=== PATIENT | female | born 1950 | race Caucasian/White ===

== ENCOUNTER 2021-01-15 12:20 | Inpatient (IN) | payer MEDICARE ==
[~2021-01-15] VITALS: Ht 180.3 cm; Wt 70.3 kg
[2021-01-15 12:57] LABS: HEMOGLOBIN 17.5 gm/dl (12.3-15.3); RED BLOOD COUNT 5.09 M/UL (4.00-5.10); WHITE BLOOD COUNT 7.5 K/UL (4.5-11.0)
[2021-01-15 13:44] LABS: BUN/CREATININE RATIO 15 (0-10)
[2021-01-16 04:08] LABS: WHITE BLOOD COUNT 7.2 K/UL (4.5-11.0)
[2021-01-16 04:10] LABS: RED BLOOD COUNT 4.3 M/UL (4.00-5.10)
[2021-01-16 04:39] LABS: BUN/CREATININE RATIO 18 (0-10)
[2021-01-17 04:17] LABS: HEMOGLOBIN 14.4 gm/dl (12.3-15.3); RED BLOOD COUNT 4.43 M/UL (4.00-5.10)
[2021-01-17 04:32] LABS: BUN/CREATININE RATIO 24 (0-10)
[2021-01-18 02:53] LABS: HEMOGLOBIN 14.2 gm/dl (12.3-15.3); RED BLOOD COUNT 4.26 M/UL (4.00-5.10)
[2021-01-18 03:15] LABS: BUN/CREATININE RATIO 19 (0-10)
[2021-01-19 03:00] LABS: HEMOGLOBIN 14.2 gm/dl (12.3-15.3); RED BLOOD COUNT 4.17 M/UL (4.00-5.10); WHITE BLOOD COUNT 4.8 K/UL (4.5-11.0)
[2021-01-19 03:24] LABS: BUN/CREATININE RATIO 20 (0-10)
[2021-01-19] MEDS ORDERED: HYDROCODON-ACE1 EAC2 PO (12:29)
[2021-01-19] MEDS ORDERED: PROAIR HFA8.5 GM INH (12:32)
[2021-01-19] MEDS ORDERED: IPRAT-ALBUT 0.5-3 ML INH (12:33)
== END 2021-01-19 13:06 | disposition home or self-care (01) | DRG 190 ==
LOC: ER1 12:20 → PROG CARE 14:05 → CDU 14:05 → PROG CARE 21:30
PROVIDERS: Emergency Medicine; Physician Assistant Medical; ADMIT Internal Medicine
PROC: 0W9930Z Drainage of Right Pleural Cavity with Drainage Device, Percutaneous Approach (ICD-10-PCS; principal; 2021-01-15)
DX: J44.9 Chronic obstructive pulmonary disease, unspecified (principal); J96.01 Acute respiratory failure with hypoxia; J93.12 Secondary spontaneous pneumothorax; K59.00 Constipation, unspecified; Z20.822 Contact with and (suspected) exposure to COVID-19; F17.210 Nicotine dependence, cigarettes, uncomplicated; Z90.49 Acquired absence of other specified parts of digestive tract; Z83.3 Family history of diabetes mellitus
CPT/HCPCS: 32551; 36415; 71045; 71046; 74018; 80048; 80053; 82550; 82553; 83735; 83874; 83880; 84484; 85025; 85027; 94640; 94664; 94760; 99285; J2250; J2270; J2405; U0002

== ENCOUNTER → 2021-02-23 | Outpatient (CLI) | payer MEDICARE ==
[~2021-02-23] MED LIST: HYDROCODON-ACE1 EAC2 PO; IPRAT-ALBUT 0.5-3 ML INH; PROAIR HFA8.5 GM INH
== END ==
LOC: EXRD 10:18
DX: J93.9 Pneumothorax, unspecified (principal); R06.02 Shortness of breath; R94.2 Abnormal results of pulmonary function studies; Z87.891 Personal history of nicotine dependence
CPT/HCPCS: 71046; 94060; 94729